=== PATIENT | male | born 1985 | race Two or more races ===

== ENCOUNTER 2020-12-03 12:30 | Emergency (ER) | payer MEDICAID ==
[~2020-12-03] VITALS: Ht 167.6 cm; Wt 79.4 kg
[2020-12-03 12:43] VITALS: BP 134/79
[2020-12-03] MEDS ORDERED: TDAP [DIPH/PERTUSSIS/TET] 0.5 ML VIAL IM ONE ×2 (13:00→13:06)
[2020-12-03] MEDS ORDERED: BACI/NEOM/POLY B OINT PKT 1 UDPKT PACKET TP ONE (13:00)
--- NOTE | 2020-12-03 13:09 | NUR ---
Patient discharged to home in stable condition. Written and verbal after care instructions given. Patient verbalizes understanding of instruction. Pt ambulatory with a steady gait
== END 2020-12-03 13:10 | disposition home or self-care (01) ==
LOC: ER 12:36
DX: S61.210A Laceration without foreign body of right index finger without damage to nail, initial encounter (principal); F17.200 Nicotine dependence, unspecified, uncomplicated; W26.0XXA Contact with knife, initial encounter; Y93.89 Activity, other specified; Y92.098 Other place in other non-institutional residence as the place of occurrence of the external cause; Y99.8 Other external cause status
CPT/HCPCS: 90715